=== PATIENT | female | born 1995 | race American Indian/Alaskan Native ===

== ENCOUNTER 2017-02-01 13:43 | Emergency (ER) | payer OTHER ==
[2017-02-01 14:03] VITALS: BP 124/92
[2017-02-01 14:23] LABS: Basophils % (Auto) 0.3 % (0.0-1.8); Eosinophils % (Auto) 0.7 % (0.0-4.3); Hematocrit 44.2 % (30.3-42.9); Hemoglobin 14.2 gm/dl (10.1-14.3); Mean Corpuscular HGB Conc 32 % (30-34); Mean Corpuscular Hemoglobin 28 pg (28-32); Mean Corpuscular Volume 87 fl (79-97); Platelet Count 147 K/mm3 (140-440); Red Blood Count 5.08 M/mm3 (3.65-5.03); Red Cell Distribution Width 13.4 % (13.2-15.2); White Blood Count 7.9 K/mm3 (4.5-11.0)
[2017-02-01 14:40] LABS: Anion Gap 18 mmol/L; BUN/Creatinine Ratio 16.66; Blood Urea Nitrogen 10 mg/dL (7-17); Calcium 9.5 mg/dL (8.4-10.2); Carbon Dioxide 24 mmol/L (22-30); Chloride 102.5 mmol/L (98-107); Glucose 97 mg/dL (65-100); Potassium 4.4 mmol/L (3.6-5.0); Sodium 140 mmol/L (137-145)
[2017-02-01 15:10] LABS: Bacteria,Urine 1+ /HPF (Negative); Bilirubin,Urine NEG (Negative); Blood,Urine NEG (Negative); Ketones,Urine 20 mg/dL (Negative); Leukocyte Esterase,Urine NEG (Negative); Mucus,Urine 3+ /HPF; Nitrite,Urine NEG (Negative); Urobilinogen,Urine < 2.0 mg/dL (<2.0)
== END 2017-02-02 09:15 | disposition left against medical advice (07) ==
LOC: ED 13:43
DX: R10.9 Unspecified abdominal pain (principal); Z53.21 Procedure and treatment not carried out due to patient leaving prior to being seen by health care provider
CPT/HCPCS: 36415; 80048; 81001; 81025; 85025

== ENCOUNTER 2017-12-02 12:45 | Emergency (ER) | payer OTHER ==
[2017-12-02 13:21] VITALS: BP 103/73
== END 2017-12-02 18:22 | disposition left against medical advice (07) ==
LOC: ED 12:45
DX: Z04.1 Encounter for examination and observation following transport accident (principal); Z53.21 Procedure and treatment not carried out due to patient leaving prior to being seen by health care provider; V89.2XXA Person injured in unspecified motor-vehicle accident, traffic, initial encounter; Y93.89 Activity, other specified; Y99.8 Other external cause status; Y92.410 Unspecified street and highway as the place of occurrence of the external cause

== ENCOUNTER 2017-12-02 22:20 | Emergency (ER) | payer OTHER ==
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
[2017-12-03] MEDS ORDERED: TYLENOL PO ONE (04:45)
[2017-12-03] MEDS ORDERED: TYLENOL ONE (05:08)
[2017-12-03 06:01] VITALS: BP 106/70
== END 2017-12-03 05:10 | disposition home or self-care (01) ==
LOC: ED 22:20
DX: O26.891 Other specified pregnancy related conditions, first trimester (principal); R51 Headache; Z3A.01 Less than 8 weeks gestation of pregnancy; Z87.891 Personal history of nicotine dependence
CPT/HCPCS: 36415; 76801; 76817; 84702; 99284

== ENCOUNTER 2019-05-02 08:22 | Emergency (ER) | payer OTHER ==
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
[2019-05-02 09:34] LABS: Albumin 4.6 g/dL (3.9-5); BUN/Creatinine Ratio 17; Blood Urea Nitrogen 10 mg/dL (7-17); Calcium 9.7 mg/dL (8.4-10.2); Hemolysis Index 3
[2019-05-02 09:40] LABS: Alanine Aminotransferase < 5 units/L (7-56); Bilirubin,Direct < 0.2 mg/dL (0-0.2)
[2019-05-02 09:44] LABS: Eosinophils % (Auto) 4.8 % (0.0-4.3); Hematocrit 42.1 % (30.3-42.9); Hemoglobin 13.7 gm/dl (10.1-14.3); Mean Corpuscular HGB Conc 33 % (30-34); Mean Corpuscular Volume 87 fl (79-97); Monocytes % (Auto) 6.8 % (0.0-7.3); Platelet Count 208 K/mm3 (140-440); Red Blood Count 4.86 M/mm3 (3.65-5.03); Red Cell Distribution Width 14.8 % (13.2-15.2)
[2019-05-02 09:45] LABS: Basophils % (Auto) 0.4 % (0.0-1.8); Eosinophils # (Auto) 0.3 K/mm3 (0.0-0.4); Lymphocytes # (Auto) 2.6 K/mm3 (1.2-5.4); Monocytes # (Auto) 0.5 K/mm3 (0.0-0.8)
[2019-05-02 10:35] LABS: Bilirubin,Urine NEG (Negative); Blood,Urine NEG (Negative); Color,Urine Yellow (Yellow); Mucus,Urine 2+ /HPF; Protein,Urine <15 mg/dL mg/dL (Negative)
--- NOTE | 2019-05-02 11:46 | Cat Scan Report ---
CT ABDOMEN AND PELVIS WITH CONTRAST HISTORY: Right lower quadrant pain for one week COMPARISON: None. TECHNIQUE: Axial CT images were obtained through the abdomen and pelvis after 100 cc of Omnipaque 300 intravenously. Sagittal and coronal reformatted images. All CT scans at this location are performed using CT dose reduction for ALARA by means of automated exposure control. FINDINGS: CT ABDOMEN: Lung Bases: Clear. Liver: No significant abnormality. Biliary: No significant abnormality. Spleen: No significant abnormality. Unenlarged. Pancreas: No significant abnormality. Adrenals: No significant abnormality. Kidneys: No significant abnormality. Lymphatics: No lymphadenopathy. Vasculature: The aorta and major branches are widely patent. The IVC is patent. Moderate bilateral ov kwan vein varicosities are identified. Bowel/Peritoneum: No significant abnormality. No free air. Normal appendix. CT PELVIS: : The uterus is within normal limits. A left adnexal cyst measures 1.9 cm. There appears to be mult iple right ovarian cysts versus right hydrosalpinx. A coalescent cystic structure measures up to 6.2 x 2.5 cm in the right adnexa. There is small free pelvic fluid. Osseous Structures: No significant abnormality. Additional Findings: None IMPRESSION: Bilateral adnexal cysts are identified as described above. There may be right hydrosalpinx. Small ace e pelvic fluid. Correlate for ovarian cystic disease versus PID. Signer Name: Navid Garnett Jr, MD Signed: 05/02/2019 11:41 AM Workstation Name: [id number]
[2019-05-02 12:26] VITALS: BP 115/80
--- NOTE | 2019-05-02 13:24 | Ultrasound Report ---
ULTRASOUND TRANSVAGINAL HISTORY: Right pelvic pain for 2 weeks, ovarian cysts, enlarged tube. TECHNIQUE: Transvaginal ultrasound with color Doppler imaging. FINDINGS: Correlation is made with the CT abdomen pelvis with contrast performed the same day. The uterus is anteverted. The uterus measures 8.6 x 3.9 x 5.0 cm. No uterine mass. The endometrium me asures 11 mm. There is trace fluid in the cervical canal. The right ovary measures 3.3 x 1.4 x 2.7 cm and contains normal-appearing follicles. No hydrosalpinx is identified as suggested on recent CT. The findings on CT may have represented fluid-filled small b owel loops. The left ovary measures 4.6 x 2.1 x 1.9 cm and contains a 2.2 cm cyst. Small free pelvic fluid is noted. IMPRESSION: No hydrosalpinx is identified on ultrasound. 2.2 cm left ovarian cyst. Signer Name: Navid Garnett Jr, MD Signed: 05/02/2019 1:19 PM Workstation Name: [id number]
[2019-05-02] MEDS ORDERED: TORADOL IV ONE (13:30)
== END 2019-05-02 13:50 | disposition home or self-care (01) ==
LOC: ED 08:22
DX: N83.201 Unspecified ovarian cyst, right side (principal); R51 Headache; N39.0 Urinary tract infection, site not specified; F41.9 Anxiety disorder, unspecified; Z98.890 Other specified postprocedural states; Z79.899 Other long term (current) drug therapy
CPT/HCPCS: 36415; 74177; 76830; 80048; 80076; 81001; 84703; 85025; 96374; 99284; J1885; Q9967

== ENCOUNTER 2021-01-01 22:53 | Emergency (ER) | payer OTHER ==
[2021-01-02 00:03] VITALS: BP 99/64
== END 2021-01-02 02:30 | disposition left against medical advice (07) ==
LOC: ED 22:53
DX: R22.0 Localized swelling, mass and lump, head (principal); Z53.21 Procedure and treatment not carried out due to patient leaving prior to being seen by health care provider